=== PATIENT | male | born 1965 | race Caucasian/White ===

== ENCOUNTER → 2016-10-05 | Outpatient (CLI) | payer OTHER ==
--- NOTE | 2016-10-05 15:26 | MR ---
MRI of the Lumbar Spine (Without Contrast) Clinical Indications: Left lower extremity sciatica. Technique: Sagittal and axial T1 and T2 MR sequences of the lumbar spine without contrast. Findings: L1-L2: No disk herniation or stenosis. L2-L3: No disk herniation or stenosis. L3-L4: No disk herniation or stenosis. L4-L5: Mild disk desiccation, without discrete disk prolapse or neural impingement. Mild central tony lar bulging. Facet joints contain small joint effusions bilaterally.. L5-S1: Mild disk desiccation, without discrete disk prolapse or neural impingement. Mild central tony lar bulging focally. Foramina remain patent.. Impression: 1. Mild features of degenerative disk disease with the lower lumbar spine, without evidence of discre te disk prolapse or neural impingement.. 2. Preliminary results called to Dr. Thorpe's office and also given directly to the patient, who was sent home..
== END ==
LOC: FIMAGING 13:44
PROVIDERS: ATTEND Orthopaedic Surgery
DX: M54.32 Sciatica, left side (principal)

== ENCOUNTER 2017-10-01 11:59 | Observation (INO) | payer OTHER ==
[2017-10-01] MEDS ORDERED: LR 1,000 ML IV SCH ×2 (12:20→18:30)
[2017-10-01] MEDS ORDERED: ceFAZolin 3 GM in D5W 100 ML IV ONE (12:20)
[2017-10-01] MEDS ORDERED: ONDANSETRON 4 MG/2 ML VIAL IVP ONE (12:20)
[2017-10-01] MEDS ORDERED: LR 1,000 ML IV ONE (12:33)
[2017-10-01] MEDS ORDERED: MIDAZOLAM 2 MG/2 ML VIAL IVP ONE (15:04)
--- NOTE | 2017-10-01 15:06 | PDANEPAE ---
ANE History of Present Illness R laparoscopic incisional hernia repair ANE Past Medical History - Cardiovascular History Hx Hypertension: Yes Hx Arrhythmias: No Hx Chest Pain: No Hx Coronary Artery / Peripheral Vascular Disease: No Hx CHF / Valvular Disease: No Hx Palpitations: No Cardiovascular History Comment: lisinopril/ hctz - Pulmonary History Hx COPD: No Hx Asthma/Reactive Airway Disease: Yes Hx Recent Upper Respiratory Infection: No Hx Oxygen in Use at Home: No Hx Sleep Apnea: Yes Sleep Apnea Screening Result - Last Documented: Positive Pulmonary History Comment: ASTHMA- INHALER, TRIGGERS ENVIRONMENTAL ALLERGENS. POS SHILOH- USES BIPAP - Neurologic History Hx Cerebrovascular Accident: No Hx Seizures: No Hx Dementia: No - Endocrine History Hx Diabetes: No Endocrine History Comment: DIABETES POST PANCREATITIS IN OCTOBER 2013, oral med. - Renal History Hx Renal Disorders: Yes Renal History Comment: KIDNEY STONES X 2 - PASSED 1 SURG X 1 - Liver History Hx Hepatic Disorders: No Hepatic History Comment: CHOLECYSTECTOMY - Neurological & Psychiatric Hx Hx Neurological and Psychiatric Disorders: No - Cancer History Hx Cancer: No - Congenital Disorder History Hx Congenital Disorders: No - GI History Hx Gastrointestinal Disorders: Yes Gastrointestinal History Comment: SPASM SPHINCTER BILIARY. Pancreatitis. - Other Health History Other Health History: GOUT - Chronic Pain History Chronic Pain: Yes (LEFT THIGH) - Surgical History Prior Surgeries: 08/14/15 quad tendon repair at [facility] [place]. 07/27/14 left wrist hardware removal with hall. 04/20/14 orif left wrist. ARAM 2011. LAP BIHR . LAP R IHR 2013. L TOE SURG. L ANKLE. APPY. KIDNEY STONE ANE Review of Systems Review of systems is: negative Review of Systems: - Exercise capacity METS (RN): 4 METS ANE Patient History - Allergies Allergies/Adverse Reactions: No Known Allergies Allergy (Verified 10/01/17 12:35) - Home Medications Home medications: home medication list seen and reviewed Home Medications: Albuterol Sulfate [Proair Hfa] 04/29/16 [Last Taken Unknown] Allopurinol 04/29/16 [Last Taken Unknown] Budesonide/Formoterol 160/4.5 [Symbicort 160-4.5 Mcg Inh (*)] 04/29/16 [Last Taken 09/30/17] Glimepiride 04/29/16 [Last Taken 09/30/17] Ipratropium/Albuterol [Duoneb (*)] 04/29/16 [Last Taken 09/30/17] Lisinopril/Hctz 10/12.5 mg [Zestoretic/Prinzide 10/12.5MG (*)] 04/29/16 [Last Taken 10/01/17 05:00] Ondansetron HCl 04/29/16 [Last Taken 09/30/17] TRAMADOL HCL 04/29/16 [Last Taken 09/30/17] Basaglar Nicoláspen U-100 09/30/17 [Last Taken Unknown] Cyclobenzaprine [Flexeril 10 MG (*)] 09/30/17 [Last Taken 09/30/17] Percocet 5/325 (*) 09/30/17 [Last Taken 09/30/17] - NPO status NPO Status: no food or drink >8 hours NPO Since - Liquids (Date): 10/01/17 NPO Since - Liquids (Time): 05:00 NPO Since - Solids (Date): 10/01/17 NPO Since - Solids (Time): 05:00 - Smoking Hx Smoking Status: Never smoked - Family Anes Hx Family Hx Anesthesia Complications: NONE ANE Labs/Vital Signs - Vital Signs Blood Pressure: 130/79 Heart Rate: 74 Respiratory Rate: 18 O2 Sat (%): 90 Height: 193.04 cm Weight: 152.861 kg ANE Physical Exam - Airway Neck exam: FROM Mallampati Score: Class 1 Mouth exam: normal dental/mouth exam - Pulmonary Pulmonary: no respiratory distress - Cardiovascular Cardiovascular: regular rate and rhythym - ASA Status ASA Status: III ANE Anesthesia Plan Anesthesia Plan: general endotracheal anesthesia
[2017-10-01] MEDS ORDERED: BUPIVACAINE 0.5% 30 ML SDV ONE ×2 (15:17→17:36)
[2017-10-01] MEDS ORDERED: ONDANSETRON 4 MG/2 ML VIAL ONE (15:21)
[2017-10-01] MEDS ORDERED: LIDOCAINE 2% 100 MG/5 ML SYR ONE (15:21)
[2017-10-01] MEDS ORDERED: ROCURONIUM 50 MG/5 ML VIAL ONE ×2 (15:21)
[2017-10-01] MEDS ORDERED: fentaNYL 250 MCG/5 ML INJ ONE (15:21)
[2017-10-01] MEDS ORDERED: PROPOFOL 200 MG/20 ML VIAL ONE ×2 (15:21→15:22)
[2017-10-01] MEDS ORDERED: SUGAMMADEX SODIUM 200 MG/2 ML VIAL IVP ONE ×2 (15:21→15:22)
[2017-10-01] MEDS ORDERED: DEXAMETHASONE 4 MG/ML VIAL ONE ×2 (15:21→15:28)
--- NOTE | 2017-10-01 15:35 | PDHPUP ---
History & Physical Update H&P update statement: This history and physical update is based on an assessment of the patient which was completed after admission or registration (within 24 hours), but prior to the surgery/procedure. H&P update: H&P reviewed & patient examined, no change in patient's condition since H&P completed (patient's [facility] history and physical exam was faxed to surgery scheduling yesterday morning)
--- NOTE | 2017-10-01 15:38 | PDGENHP ---
History & Physical Chief Complaint: abd pain History of Present Illness: 52 y/o male with 2 week history of abd pain and a recurrent upper midline incisional hernia admitted for lap repair Pertinent Past, Social, Family History: non-smoker, denies alcohol. and accompanied by his . Hx type II DM, hyperlipidemia, SHILOH, obesity, pancreatitis Relevant Physical Exam: midline abdominal incision with protrusion consistant with recurrence Cardiorespiratory Assessment: RRR w/out murmurs. lungs-clear Assessment & Plan Assessment: recurrent ventral/incisional hernia multiple medical problems Plan: we discussed lap repair with possible conversion to open He understands the risks, benefits, expected recovery. Informed consent was obtained. Anthony Oh MD, FACS
[2017-10-01] MEDS ORDERED: ACETAMINOPHEN 500 MG TAB PO PRN (15:40)
[2017-10-01] MEDS ORDERED: PROMETHAZINE HCL 25 MG/ML INJ IVP PRN ×2 (15:40→18:20)
[2017-10-01] MEDS ORDERED: DEXAMETHASONE 4 MG/ML VIAL IVP PRN (15:40)
[2017-10-01] MEDS ORDERED: OXYCODONE/APAP 5/325 TAB PO PRN ×2 (15:40→18:20)
[2017-10-01] MEDS ORDERED: HYDROCODONE/APAP 5/325 TAB PO PRN (15:40)
[2017-10-01] MEDS ORDERED: MEPERIDINE 25 MG/ML SYR IVP PRN (15:40)
[2017-10-01] MEDS ORDERED: ONDANSETRON 4 MG/2 ML VIAL IVP PRN ×2 (15:40→18:20)
[2017-10-01] MEDS ORDERED: LABETALOL HCL 5 MG/ML 20 ML MDV IVP PRN (15:40)
[2017-10-01] MEDS ORDERED: NALOXONE HCL 0.4 MG/ML INJ IVP PRN (15:40)
[2017-10-01] MEDS ORDERED: ALBUTEROL 3 ML DEYVIAL IH PRN (15:40)
--- NOTE | 2017-10-01 15:43 | POSTANESTH ---
Post Anesthetic Evaluation Cardiovascular Status: Similar to Pre-Op Cond Respiratory Status: Similar to Pre-op Cond. Level of Consciousness/Mental Status: Can Participate in Eval, Mildly Sleepy, Arousable Pain Control: Adequate, Prn Tx Ordered Nausea/Vomiting Control: Adequate, Prn Tx Ordered Complications Possibly Related to Anesthesia: None Noted
[2017-10-01] MEDS ORDERED: ROCURONIUM 100 MG/10 ML VIAL ONE (17:08)
[2017-10-01] MEDS ORDERED: fentaNYL 100 MCG/2 ML INJ ONE ×3 (18:06→19:20)
[2017-10-01] MEDS ORDERED: HYDROmorphONE/DILAUDID 1 MG/ML INJ ONE ×2 (18:19→19:36)
--- NOTE | 2017-10-01 18:30 | POSTOPPROG ---
Post Op Note Date of Operation: 10/01/17 Surgeon: Dipesh Oh (, FACS) [employer] Technician: HECTOR Barrientos-3 Anesthesiologist: Perico Salguero MD Anesthesia: GET(General Endotracheal) Pre-op Diagnosis: recurrent incisional hernia Post-op Diagnosis: same Procedure: lap repair recurrent incisional hernia with mesh Findings: central recurrence of prior hernia repair secondary to prolapse of the mesh Inf/Abcess present in the surg proc area at time of surgery?: No Complications: none
[2017-10-01] MEDS: fentaNYL 100 MCG/2 ML INJ IVP PRN ×5 (18:31→19:46)
[2017-10-01] MEDS: HYDROmorphONE/DILAUDID 1 MG/ML INJ IVP PRN ×5 (18:31→19:47)
--- NOTE | 2017-10-01 20:12 | GOP ---
[f rep st] OPERATIVE REPORT DATE OF OPERATION: 10/01/2017 SURGEON: Dipesh Oh MD ANESTHESIA: General endotracheal. Perico Salguero M.D. PREOPERATIVE DIAGNOSIS: 1. Recurrent incisional/ventral hernia. 2. Morbid obesity. POSTOPERATIVE DIAGNOSIS: 1. Recurrent incisional/ventral hernia. 2. Morbid obesity. PROCEDURE PERFORMED: Laparoscopic repair of recurrent incisional/ventral hernia. FINDINGS: Central buckling of prior ventral hernia mesh repair with protrusion of the mesh through t he defect. Abdominal wall rerepaired with polyester/composite collagen mesh, resurfacing the central defect. ESTIMATED BLOOD LOSS: 50 cc. DESCRIPTION OF PROCEDURE: After informed consent was obtained, the patient was brought to the operat ing room and placed under general anesthesia. The abdomen was clipped, prepped and draped in the usu al fashion. The patient received 3 g of cefazolin preoperatively. Before proceeding, a time-out and identification of the patient was performed. The patient had a prior supraumbilical midline incision with a tender palpable bulge at the site. Ul trasound showed a hernial defect. The patient was brought to the operating room for elective rerepai r due to symptoms. The peritoneal cavity was entered in the left upper quadrant by direct cutdown and a Radha cannula w as established and secured to the fascia with 0 Vicryl suture. A pneumoperitoneum was established wi th CO2 gas to a pressure of 15 mmHg. A 30-degree 5 mm scope was introduced and the peritoneal cavity was visualized. The patient had central adhesions between the omentum and the prior mesh repair of the anterior abdominal wall. Additional 5 mm ports were placed in the left lower quadrant and suprap ubic midline. These were used to rotate the scope and introduce atraumatic grasping forceps and the Harmonic Scalpel. This was used to take down the adhesions from the anterior abdominal wall and allo w the omentum to retract posteriorly. There was a generous size piece of mesh that covered the central abdomen and the central portion of t he mesh appeared to have buckled from being under an adequate tension and was protruding through the fascial level. This resulted in a secondary hernia, but had no intraabdominal contents incarcerated within it. The defect was rerepaired with a 2nd sheet of mesh measuring 10 x 15 cm. This was anchor ed at each corner with 0 Ethibond sutures, tied to the mesh and cut to a length of approximately 8 cm . This mesh was then rolled up and passed through the 12 mm port site, unraveled and placed posterio rly over the omentum and lined up with the defect. The suture anchors were brought through separate stab wounds in the anterior abdominal wall lateral t o the previously noted defect. The Endy-Chela suture passer was used to pull the sutures up thr ough the abdominal wall in a mattress suture fashion. Once all 4 sutures had been placed these were tied, nicely pulling the mesh over the central defect and without any buckling or significant laxity. The remainder of the mesh was then secured to the abdominal wall circumferentially with interrupted AbsorbaTacks placed at approximately 5 mm from the edge of the mesh circumferentially at 1-2 cm inte rvals. After this had been completed, hemostasis appeared secure. The pneumoperitoneum was evacuated and al l ports were removed. The left upper quadrant defect was repaired with interrupted 0 Ethibond suture s. The subcutaneous tissues were approximated with 3-0 Vicryl suture. Skin was closed with 4-0 Gadsden cryl suture for all incisions. Topical Dermabond was applied. The patient was extubated and brought to the recovery room in satisfactory condition. Needle, sponge, and instrument count were correct. AUTOMOTIVE PARTS PERSON SURGEON: ESTELLE Barrientos. COMPLICATIONS: None. /[id number]/MODL
[2017-10-01] MEDS ORDERED: CYCLOBENZAPRINE 10 MG TAB PO PRN (21:32)
[2017-10-01] MEDS ORDERED: IPRATROPIUM/ALBUTEROL 3 ML DEYVIAL IH PRN (21:32)
[2017-10-01] MEDS ORDERED: ONDANSETRON DISINTEGRATING 4 MG TAB PO PRN (21:32)
[2017-10-01] MEDS ORDERED: ALBUTEROL 60 PUFFS/8 GM MDI IH PRN (21:32)
[2017-10-01] MEDS ORDERED: INSULIN GLARGINE 100 UNITS/ML UNIT SC SCH (21:45)
[2017-10-01] MEDS ORDERED: ceFAZolin 2 GM/DEXTROSE 100 ML IV SCH (22:00)
[2017-10-01] MEDS: HYDROmorphONE/DILAUDID 4 MG TAB PO PRN (23:23)
[2017-10-01] MEDS: KETOROLAC 15 MG/1 ML SDV IVP SCH (23:23)
[2017-10-01] MEDS: ceFAZolin 2 GM/SWFI 2 GM/20 ML SYR IVP SCH (23:24)
[2017-10-02] MEDS: HYDROmorphONE/DILAUDID 4 MG TAB PO PRN ×2 (05:03→10:27)
[2017-10-02] MEDS: KETOROLAC 15 MG/1 ML SDV IVP SCH (05:03)
[2017-10-02 05:23] LABS: PLATELET COUNT 264 10^3/uL (150-400)
[2017-10-02 07:36] VITALS: RESP 16; TEMP 98; O2SAT 93
[2017-10-02] MEDS: ceFAZolin 2 GM/SWFI 2 GM/20 ML SYR IVP SCH (08:44)
[2017-10-02 08:53] VITALS: BP 126/77; PULSE 79
[2017-10-02] MEDS ORDERED: ENOXAPARIN 40 MG/0.4 ML SYR SC SCH (09:00)
[2017-10-02] MEDS ORDERED: LISINOPRIL/HCTZ 10/12.5 MG 1 EA TAB PO SCH (09:00)
[2017-10-02] MEDS ORDERED: BUDESONIDE/FORMOTEROL 160/4.5 60 PUFFS/MDI IH SCH (09:00)
[2017-10-02] MEDS ORDERED: GLIMEPIRIDE 2 MG TAB PO SCH (09:00)
[2017-10-02] MEDS ORDERED: ALLOPURINOL 300 MG TAB PO SCH (09:00)
--- NOTE | 2017-10-02 10:11 | PDDCSUM ---
Discharge Summary Discharge Summary: DOA: 10/01/2017 DOD: 10/02/2017 DC Dx: 1.recurrent incisional hernia, incarcerated 2. SHILOH 3. post op hypoxemia 4. HTN 5. IDDM 6. obesity 7. chronic leukocytosis RX: lap repair recurrent incisional hernia 10/01/2017 Hospital Course: Pavan was admitted after lap repair of a recurrent incisional hernia with mesh He received prophylactic antibiotics and had good control of his blood glucose perioperatively. He required supplemental O2 and used his CPAP post op and was weened from his O2 prior to discharge. Medications: he will resume all prior medications per his medication reconciliation In addition he was give Rx for Dilaudid 4mg tabs #30 and Senokot S #30 FU in my office one week and as needed condition at the time of discharge hank Oh MD, FACS
--- NOTE | 2017-10-02 11:08 | ASMTCMCOM ---
CM Note CM Note Notes: Pt admitted for scheduled lap repair for recurrent midline incisional hernia. Pt is and lives w/ his . Per MD notes, pt to discharge home independently w/ family support and no identified needs. No IM signed, not applicable. Pt to follow up in one week, per prior instructions. CM avail for any further issues or concerns. Current Discharge Plan: Home independent w/ family support Date Signed: 10/02/2017 11:08 AM Electronically Signed By:Mitzi Flowers RN
--- NOTE | 2017-10-02 11:26 | ASMTLACE ---
LACE Length of stay for Answers: 2 days current admission Acuity / Level of Answers: No Care: Did the patient have an inpatient admission? Comorbidities - select Answers: Diabetes (uncontrolled or all that apply controlled) Other Notes: Obestity, HTN, chronic leukocystosis # of Emergency department Answers: 0 visits in the last 6 months Score: 4 Date Signed: 10/02/2017 11:25 AM Electronically Signed By:Mitzi Flowers RN
--- NOTE | 2017-10-02 13:08 | ASDISCHSUM ---
Discharge Information Plan Status:Home with No Needs Medically Cleared to Leave:10/01/2017 Discharge Date:10/02/2017 12:03 PM CM D/C Disposition:Home, Routine, Self-Care ADT D/C Disposition:Home, Routine, Self-Care Projected Discharge Date:10/02/2017 12:03 PM Transportation at D/C:Family Discharge Delay Reason: Follow-Up Date:10/02/2017 12:03 PM Discharge Slot:1 - 8:01 am - 12:00 noon Final Diagnosis:s/p lap repair for recurrent incisional hernia, SHILOH, post op hypoxemia, HTN, IDDM, o besity, chronic leukocytosis Placement Information Patient Contact Information Contact Name:SHARA Relationship: Address:[address] [address] City:[facility] [facility] [facility] Alternate Phone: [facility]/Zip Code:[place] [address] Email: Financial Information Financial Class:HMO and PPO Plans Primary Plan Desc:[employer] PPO POS HMO Primary Plan Number:[id number] Secondary Plan Desc: Secondary Plan Number: Assessment Information [facility] CM Progress Note CM Note CM Note Notes: Pt admitted for scheduled lap repair for recurrent midline incisional hernia. Pt is and lives w/ his . Per MD notes, pt to discharge home independently w/ family support and no identified needs. No IM signed, not applicable. Pt to follow up in one week, per prior instructions. CM avail for any further issues or concerns. Current Discharge Plan: Home independent w/ family support Date Signed: 10/02/2017 11:08 AM Electronically Signed By:Mitzi Flowers RN LACE LACE Length of stay for Answers: 2 days current admission Acuity / Level of Answers: No Care: Did the patient have an inpatient admission? Comorbidities - select Answers: Diabetes (uncontrolled or all that apply controlled) Other Notes: Obestity, HTN, chronic leukocystosis # of Emergency department Answers: 0 visits in the last 6 months Score: 4 Date Signed: 10/02/2017 11:25 AM Electronically Signed By:Mitzi Flowers RN Intervention Information
[2017-10-02] MEDS ORDERED: INSULIN GLARGINE 100 UNITS/ML UNIT SC SCH (21:00)
[2017-10-02] MEDS ORDERED: SENNOSIDES/DOCUSATE SODIUM TAB PO SCH (21:00)
[2017-10-02] MEDS ORDERED: CETIRIZINE 10 MG TAB PO SCH (21:00)
== END 2017-10-02 12:03 | disposition home or self-care (01) ==
LOC: FSGY 11:59 → F3E 18:20
PROVIDERS: ADMIT Surgery; ATTEND Surgery
PROC: 0WUF4JZ Supplement Abdominal Wall with Synthetic Substitute, Percutaneous Endoscopic Approach (ICD-10-PCS; principal; 2017-10-01 13:45)
PROC: 0WQF4ZZ Repair Abdominal Wall, Percutaneous Endoscopic Approach (ICD-10-PCS; principal; 2017-10-01 13:45)
DX: K43.2 Incisional hernia without obstruction or gangrene (principal); G47.33 Obstructive sleep apnea (adult) (pediatric); R09.02 Hypoxemia; I10 Essential (primary) hypertension; E10.9 Type 1 diabetes mellitus without complications; E66.01 Morbid (severe) obesity due to excess calories; D72.829 Elevated white blood cell count, unspecified
CPT/HCPCS: 49654; G0378; C1781; J0690; J1100; J1170; J1650; J1815; J1885; J2001; J2250; J2405; J2704; J3010